=== PATIENT | male | born 1980 | race Caucasian/White ===

== ENCOUNTER 2017-01-17 01:14 | Emergency (ER) | payer MEDICAID, OTHER ==
[~2017-01-17] VITALS: Ht 170.2 cm; Wt 70.5 kg
[2017-01-17 01:21] VITALS: Ht 170.2 cm; Wt 70.5 kg
[2017-01-17] MEDS ORDERED: ASPIRIN 325 MG TAB PO STA (01:22)
[2017-01-17] MEDS ORDERED: LIDOCAINE/MYLANTA 40 ML BTL PO ONE (01:30)
[2017-01-17 02:29] LABS: BASOPHILS % 0.5 % (0.0-2.0); EOSINOPHILS # 0.2 10^3/ul (0.0-0.5); HEMATOCRIT 44.6 % (42.0-52.0); HEMOGLOBIN 15.4 g/dl (14.0-18.0); LYMPHOCYTES % 30.9 % (15.0-51.0); MEAN CORPUSCULAR HEMOGLOBIN 30.4 pg (29.0-33.0); MEAN CORPUSCULAR HGB CONC 34.5 g/dl (32.0-37.0); MEAN PLATELET VOLUME 10.7 fl (7.4-10.4); MONOCYTE # 0.8 10^3/ul (0.3-0.9); MONOCYTES % 12.3 % (0.0-11.0); NEUTROPHIL # 3.4 10^3/ul (1.6-7.5); NEUTROPHILS % 53.1 % (39.0-77.0); PLATELET COUNT 296 10^3/UL (140-415); RED BLOOD COUNT 5.07 10^6/ul (4.70-6.10); RED CELL DISTRIBUTION WIDTH 12.9 % (11.5-14.5); WHITE BLOOD COUNT 6.4 10^3/ul (4.8-10.8)
[2017-01-17 02:45] LABS: INR 0.98
[2017-01-17 02:46] LABS: PARTIAL THROMBOPLASTIN TIME 31.9 Sec (25.0-35.0)
[2017-01-17 02:50] LABS: ANION GAP 16 (8-16); BLOOD UREA NITROGEN 12 mg/dl (7-20); CARBON DIOXIDE 32 mmol/L (21-31); CHLORIDE 99 mmol/L (97-110); CREATININE 0.84 mg/dl (0.61-1.24); GLUCOSE 96 mg/dl (70-220); POTASSIUM 4.1 mmol/L (3.5-5.1); SODIUM 143 mmol/L (135-144)
--- NOTE | 2017-01-17 02:56 | RADRPT ---
PROCEDURE: Portable chest x-ray. CLINICAL INDICATION: Chest pain. TECHNIQUE: Portable AP view of the chest. COMPARISON: None. FINDINGS: No pulmonary edema or conolidation is identified. The cardiac silhouette is magnified. No pleural effusion is seen. There is no pneumothorax. IMPRESSION: 1. No evidence of acute cardiopulmonary disease. RPTAT: HTAR .Asher Choi MD, MD Date Time Electronically viewed and signed by .Asher Choi MD, on 01/17/2017 02:56 .R/
[2017-01-17 03:04] LABS: TROPONIN-I < 0.012 ng/ml (0.00-0.12)
--- NOTE | 2017-01-17 03:09 | ERD ---
ER Documentation Chief Complaint Date/Time DATE: 01/17/17 TIME: 03:06 Chief Complaint CHEST PAIN SINCE THIS AM, JOINTS HURT HPI This 28-year-old male called 911 for chest pain that he has had since earlier this morning. Chest pain is left-sided has been constant since this morning. Nothing seems to make it better or worse. States that the pain is not as bad as it was earlier in the day. Was given a nitro spray by paramedics without much change. He has no shortness of breath nausea or any other associated symptoms. ROS All systems reviewed and are negative except as per history of present illness. Allergies Allergies: Coded Allergies: No Known Allergy (Unverified , 01/17/17) PMhx/Soc History of Surgery: Yes ("TRACHEOTOMY A KID") Anesthesia Reaction: No Hx Tobacco Use: Yes ("QUIT YESTERDAY") Smoking Status: Current every day smoker Physical Exam Vitals Vital Signs Date Time Temp Pulse Resp B/P Pulse Ox O2 Delivery O2 Flow Rate FiO2 01/17/17 02:25 64 14 109/83 100 Nasal Cannula 2.0 01/17/17 01:41 Nasal Cannula 2 01/17/17 01:41 58 10 117/81 100 Nasal Cannula 2.0 01/17/17 01:21 98.6 84 17 122/85 99 Physical Exam Const: [] No distress Head: Atraumatic Eyes: Normal Conjunctiva ENT: Normal External Ears, Nose and Mouth. Neck: Full range of motion..~ No meningismus. Resp: Clear to auscultation bilaterally Cardio: Regular rate and rhythm, no murmurs Abd: Soft, non tender, non distended. Normal bowel sounds Skin: No petechiae or rashes Back: No midline or flank tenderness Ext: No cyanosis, or edema Neur: Awake and alert and oriented 3, no focal deficits Psych: Normal Mood and Affect Result Diagram: 01/17/17 01301/17/17 0131 Results 24 hrs Laboratory Tests Test 01/17/17 01:31 White Blood Count 6.410^3/ul Red Blood Count 5.0710^6/ul Hemoglobin 15.4g/dl Hematocrit 44.6% Mean Corpuscular Volume 88.0fl Mean Corpuscular Hemoglobin 30.4pg Mean Corpuscular Hemoglobin Concent 34.5g/dl Red Cell Distribution Width 12.9% Platelet Count 43329^3/UL Mean Platelet Volume 10.7fl Neutrophils % 53.1% Lymphocytes % 30.9% Monocytes % 12.3% Eosinophils % 3.0% Basophils % 0.5% Nucleated Red Blood Cells % 0.0/100WBC Neutrophils # 3.410^3/ul Lymphocytes # 2.010^3/ul Monocytes # 0.810^3/ul Eosinophils # 0.210^3/ul Basophils # 0.010^3/ul Nucleated Red Blood Cells # 0.010^3/ul Prothrombin Time 13.0Sec Prothrombin Time Ratio 1.0 INR International Normalized Ratio 0.98 Activated Partial Thromboplast Time 31.9Sec Sodium Level 143mmol/L Potassium Level 4.1mmol/L Chloride Level 99mmol/L Carbon Dioxide Level 32mmol/L Anion Gap 16 Blood Urea Nitrogen 12mg/dl Creatinine 0.84mg/dl Glucose Level 96mg/dl Calcium Level 9.0mg/dl Troponin I < 0.012ng/ml Current Medications Medications (Trade) Dose Ordered Sig/Esther Route PRN Reason Start Time Stop Time Status Last Admin Dose Admin Aspirin (Aspirin) 325 mg ONCE STAT PO 01/17/17 01:22 01/17/17 01:24 DC 01/17/17 01:39 Miscellaneous Medication (Gi Cocktail (2)) 40 ml ONCE ONCE PO 01/17/17 01:30 01/17/17 01:31 DC 01/17/17 01:39 Procedures/MDM Atypical chest pain in young healthy patient with no cardiac risk factors. Nonischemic EKG and negative troponin after a full day of chest pain. I have very low suspicion for acute coronary syndrome. Patient was given aspirin in the emergency room. Am going to discharge him with Zantac as well as naproxen. Primary care follow-up in 2 3 days and instructions for an outpatient echocardiogram. Return precautions to the ER also given. EKG interpretation: Normal sinus rhythm rate of 61, normal axis, normal intervals, no ST or T-wave changes concerning for acute ischemia. Normal EKG quality assurance monitor final interpretation: Normal sinus rhythm without arrhythmia Chest x-ray interpretation: I see no acute process, I see no bony abnormalities , I see no pneumothorax, no infiltrates, no pulmonary edema. Departure Diagnosis: Primary Impression: Chest pain Condition: Pavithra CANDE CAMSTEPHANIE LUNDY Jan 17, 2017 03:09
[2017-01-17] MEDS ORDERED: RANI150T9 PO (03:10)
[2017-01-17] MEDS ORDERED: NAPR-688 PO (03:10)
[2017-01-17 04:02] VITALS: BP 106/90; PULSE 53; RESP 13
== END 2017-01-17 04:04 | disposition home or self-care (01) ==
LOC: E/R 01:14
DX: R07.9 Chest pain, unspecified (principal); F17.210 Nicotine dependence, cigarettes, uncomplicated
CPT/HCPCS: 36415; 71010; 80048; 84484; 85025; 85610; 85730; 93005; Z7502; Z7610